=== PATIENT | female | born 1985 | race Caucasian/White ===

== ENCOUNTER 2018-06-17 18:29 | Emergency (ER) | payer OTHER ==
[2018-06-17 18:54] VITALS: TEMP 98.4
--- NOTE | 2018-06-17 19:49 | XR ---
EXAMINATION TYPE: XR cervical spine comp DATE OF EXAM: 06/17/2018 COMPARISON: NONE HISTORY: Neck pain TECHNIQUE: 5 views FINDINGS: Vertebra have normal spacing and alignment. Posterior elements are intact. Atlantoaxial fac et joint is normal. There are no cervical ribs. Neural foramina are widely patent. IMPRESSION: Normal cervical spine.
--- NOTE | 2018-06-17 19:50 | XR ---
EXAMINATION TYPE: XR elbow complete LT DATE OF EXAM: 06/17/2018 COMPARISON: NONE HISTORY: Elbow pain TECHNIQUE: 3 views FINDINGS: I see no fracture nor dislocation. Joint spaces are normal. There is no sign of elbow joint effusion. IMPRESSION: Negative left elbow exam.
--- NOTE | 2018-06-17 20:15 | ED ---
General Adult HPI - General Chief complaint: Extremity Injury, Upper Stated complaint: left elbow pain Time Seen by Provider: 06/17/18 18:55 Source: patient Mode of arrival: ambulatory Limitations: no limitations - History of Present Illness Initial comments: 33-year-old female patient presents to emergency department today with complaints of left-sided neck pain and left elbow pain. Patient states proximally 4 months ago she was doing yoga where she was attempting to stand on her head. States that she feels like she twisted her neck wrong while doing this. States that she has been having pain and discomfort since especially turning her head side to side. Patient states she is also having pain radiating down the arm to her left elbow into her fingers. States that she is having some numbness and tingling to the fifth and sixth finger on the left hand. She denies any difficulty with cancer program director strength. Denies any headaches, blurred vision, or double vision. Denies any recent injury to the neck or arm. Denies any redness to the joints versus joint swelling. Patient denies any back pain, chest pain, shortness of breath, dizziness, weakness, abdominal pain , nausea, vomiting, or difficulties with bowel movements or urination. - Related Data Previous Rx's Medication Instructions Recorded Cyclobenzaprine [Flexeril] 10 mg PO TID #15 tab 06/17/18 Ibuprofen [Motrin] 600 mg PO Q8HR PRN #30 tab 06/17/18 predniSONE 50 mg PO DAILY #5 tablet 06/17/18 Allergies Allergy/AdvReac Type Severity Reaction Status Date / Time No Known Allergies Allergy Verified 06/17/18 18:54 Review of Systems ROS Statement: Those systems with pertinent positive or pertinent negative responses have been documented in the HPI. ROS Other: All systems not noted in ROS Statement are negative. Past Medical History Past Medical History: Osteoarthritis (OA) History of Any Multi-Drug Resistant Organisms: None Reported Past Surgical History: Tubal Ligation Past Psychological History: Anxiety, Bipolar, Depression Smoking Status: Never smoker Past Alcohol Use History: None Reported Past Drug Use History: Marijuana General Exam Limitations: no limitations General appearance: alert, in no apparent distress, other (This is a well- developed, well-nourished adult female patient in no acute distress. Vital signs upon presentation are temperature 98.4F, pulse 79, respirations 18, blood pressure 125/80, pulse ox 98% on room air.) Eye exam: Present: normal appearance, PERRL, EOMI. Absent: scleral icterus, conjunctival injection, periorbital swelling ENT exam: Present: normal exam, normal oropharynx, mucous membranes moist Neck exam: Present: normal inspection, full ROM (No limitation). Absent: tenderness, meningismus, lymphadenopathy Respiratory exam: Present: normal lung sounds bilaterally. Absent: respiratory distress, wheezes, rales, rhonchi, stridor Cardiovascular Exam: Present: regular rate, normal rhythm, normal heart sounds. Absent: systolic murmur, diastolic murmur, rubs, gallop, clicks Extremities exam: Present: normal inspection, full ROM, normal capillary refill , other (Skin to the left upper extremities pink, warm, and dry. Cap refills less than 3 seconds. Radial pulses 2+ and equal bilaterally. Patient has full range of motion of the left elbow with no limitation, reports increased pain on full extension. Patient has full range of motion of the left shoulder with no limitation no pain. There is no joint swelling or erythema. Temperature is normal.). Absent: tenderness, pedal edema, joint swelling, calf tenderness Neurological exam: Present: alert, oriented X3, CN II-XII intact Psychiatric exam: Present: normal affect, normal mood Skin exam: Present: warm, dry, intact, normal color. Absent: rash Course Vital Signs 06/17/18 06/17/18 18:52 20:43 Temperature 98.4 F 98.4 F Pulse Rate 79 63 Respiratory 18 16 Rate Blood Pressure 125/80 110/76 O2 Sat by Pulse 98 98 Oximetry Medical Decision Making - Medical Decision Making 33-year-old female patient presents to the emergency department today for evaluation of neck pain and left elbow pain. Physical examination is relatively unremarkable. Patient has no bony tenderness. No evidence of joint swelling or erythema. Patient has full range of motion without limitation. Wilderness Guide strength is equal. Patient symptoms are consistent with cervical radiculopathy possible ulnar nerve dysfunction. We will treat with anti- inflammatories, muscle relaxers, and steroids. She is instructed to follow-up with orthopedics for further evaluation of her symptoms persist. Return parameters were discussed in detail. She verbalizes understanding and agrees with this plan. - Radiology Data Radiology results: report reviewed, image reviewed 5 views of the cervical spine are obtained. Vertebra abnormal spacing alignment. Posterior elements are intact. Atlantoaxial facet joint is normal. There are no cervical ribs. Neural foramina are widely patent. Impression by Dr. No shows normal cervical spine. 3 views of the left elbow are obtained. This no fracture or dislocation noted. Joint spaces are normal. There is no sign of elbow joint effusion. Impression by Dr. No shows negative left elbow exam. Disposition Clinical Impression: Neck strain, Cervical radiculopathy, Ulnar nerve entrapment at elbow Disposition: HOME SELF-CARE Condition: Good Instructions: Cervical Strain (ED), Cubital Tunnel Syndrome (ED), Cervical Radiculopathy (ED) Additional Instructions: Apply warm moist heat to the neck. Perform gentle range of motion exercises. Complete medications as directed. Follow-up with the primary care physician for recheck in 1-2 days. Return here immediately for any new, worsening, or concerning symptoms. Prescriptions: Cyclobenzaprine [Flexeril] 10 mg PO TID #15 tab Ibuprofen [Motrin] 600 mg PO Q8HR PRN #30 tab PRN Reason: Pain predniSONE 50 mg PO DAILY #5 tablet Is patient prescribed a controlled substance at d/c from ED?: No Referrals: Neymar Cline DO [Primary Care Provider] - 1-2 days Ran Burch MD [Medical Doctor] - 1-2 days Time of Disposition: 20:15
[2018-06-17 20:44] VITALS: BP 110/76; PULSE 63; RESP 16
== END 2018-06-17 20:40 | disposition home or self-care (01) ==
LOC: EC 18:29
DX: S16.1XXA Strain of muscle, fascia and tendon at neck level, initial encounter (principal); M54.12 Radiculopathy, cervical region; X50.1XXA Overexertion from prolonged static or awkward postures, initial encounter; Y93.42 Activity, yoga
CPT/HCPCS: 72050; 99283